=== PATIENT | female | born 2000 | race Caucasian/White ===

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

== ENCOUNTER 2022-03-18 17:35 | Emergency (ER) | payer OTHER ==
--- OUTSIDE RECORDS SUMMARY | 2022-03-18 17:39 | XMS REPORT | Continuity of Care Document ---
:2000 Author Organization [facility] t Address [address] [place] [address] Dr. Parr [address] [place] [id number] Care Team Providers Name Role Phone Rhea Huitron Primary Care Physician [phone] Problems Condition Condition Condition Status Onset Resolution Last Treating Co mments Source Name Details Category Date Date Treatment Clinician Date BCP ( BCP ( Diagnosis Active Common control control Spirit pills) pills) - [facility] initiation initiation [facility] Abnormal Abnormal Diagnosis Active Com mon menses menses Spirit - [facility] Vitamin D Vitamin D Problem Active Com mon deficiency deficiency Sp bhumika - [facility] Disturbanc Disturbanc Problem Active C ommon e in sleep e in sleep Sp bhumika behavior behavior - [facility] Other iron Other iron Problem Active C ommon deficiency deficiency Sp bhumika anemia anemia - [facility] Encounter Encounter Problem Active Com mon for for Spirit counseling counseling - [facility] Initiation Initiation Problem Active C ommon of Depo of Depo Spirit Provera Provera - [facility] Depression Depression Diagnosis Active Common with with Spirit anxiety anxiety - [facility] Obesity Obesity Diagnosis Active Commo n (BMI (BMI Spirit 30-39.9) 30-39.9) - [facility] Menstrual Menstrual Problem Active Com mon spotting spotting [facility] Surveillan Surveillan Problem Active C ommon ce for ce for Spirit Depo-Prove Depo-Prove - [facility] ra ra St contracept [facility] Dietary Dietary Diagnosis Active Commo n surveillan surveillan Sp bhumika ce and ce and - [facility] counseling counseling [facility] Allergies, Adverse Reactions, Alerts This patient has no known allergies or adverse reactions. Medications Ordered Filled Start Stop Current Ordering Indication Dosage Frequency Signature Comments Components Source Medication Medication Date Date Medication? Clinician (SIG) Name Name TAKE 1 No 25 TABLET BY 8-18 MOUTH TWICE 00:00: A DAY 00 NEEDED NEEDED FOR ANXIETY AND SLEEP QUETIAPINE No 25 TAB 25MG 8-18 00:00: 00 fluoxetine 2020-05 No 1mg 20 mg 2-01 tablet 00:00: 00 propranolol 2020-05 No 1mg 10 mg 2-01 tablet 00:00: 00 cholecalcif 2020-05 No 1(50,00 loreto 1-03 0 unit) (vitamin 00:00: D3) 1,250 00 mcg (50,000 unit) tablet paroxetine 2020-05 No 1mg 20 mg 1-02 tablet 00:00: 00 propranolol 2020-05 No 1mg 10 mg -02 tablet 00:00: 00 cholecalcif No 1(50,00 loreto 4-28 0 unit) (vitamin 00:00: D3) 1,250 00 mcg (50,000 unit) tablet cholecalcif No 1(50,00 loreto 4-19 0 unit) (vitamin 00:00: D3) 1,250 00 mcg (50,000 unit) tablet paroxetine No 1mg 20 mg 4-16 tablet 00:00: 00 meclizine No 1mg 12.5 mg 4-16 tablet 00:00: 00 Lessina Lessina 2018-1 Yes Mickie 1 tablet Co mmon 2-16 Millender Spirit 00:00: - [facility] Paxil Paxil 2018-0 Yes Mickie 1 tablet Common 4-10 Millender in the Spirit 00:00: morning - [facility] Flonase Flonase 2018-0 Yes Mickie 2 sprays Co mmon 3-28 Millender in each Spirit 00:00: nostril - [facility] Depo-Shaker Screen Operator Depo-Shaker Screen Operator 2019- No Mickie 1 ml Common a a 12-16 Millender [facility] 00:00 - [facility] :00 [facility] Vital Signs Vital Name Observation Time Observation Value Comments Source BP Systolic 2021-04-25 09:45:00 121 mm[Hg] BP Diastolic 2021-04-25 09:45:00 76 mm[Hg] Weight Measured 2021-04-25 09:45:00 214.60 pounds Height Measured 2021-04-25 09:45:00 63.50 inches Body Temperature 2021-04-25 09:45:00 97.60 degrees Heart Rate 2021-04-25 09:45:00 78.00 /min Respiratory Rate 2021-04-25 09:45:00 BP Systolic 2021-03-27 15:29:00 107 mm[Hg] BP Diastolic 2021-03-27 15:29:00 71 mm[Hg] Weight Measured 2021-03-27 15:29:00 211.80 pounds Height Measured 2021-03-27 15:29:00 63.50 inches Body Temperature 2021-03-27 15:29:00 97.60 degrees Heart Rate 2021-03-27 15:29:00 65.00 /min Respiratory Rate 2021-03-27 15:29:00 BP Systolic 2020-09-08 09:25:00 105 mm[Hg] BP Diastolic 2020-09-08 09:25:00 67 mm[Hg] Weight Measured 2020-09-08 09:25:00 229.00 pounds Height Measured 2020-09-08 09:25:00 63.50 inches Body Temperature 2020-09-08 09:25:00 97.50 degrees Heart Rate 2020-09-08 09:25:00 87.00 /min Respiratory Rate 2020-09-08 09:25:00 Procedures This patient has no known procedures. Plan of Care Planned Activity Planned Date Details Comments Source Goal Plan of Care Note [code = 95781-7] Goal Plan of Care Note [code = 99643-8] Goal Plan of Care Note [code = 52534-5] Goal Plan of Care Note [code = 11818-9] Goal Plan of Care Note [code = 66198-4] Goal Plan of Care Note [code = 27277-0] Goal Plan of Care Note [code = 92022-0] Goal Plan of Care Note [code = 66510-9] Goal Plan of Care Note [code = 16620-9] Goal Plan of Care Note [code = 08885-4] Goal Plan of Care Note [code = 46661-5] Goal Plan of Care Note [code = 67704-9] Goal Plan of Care Note [code = 59484-8] Goal Plan of Care Note [code = 89922-0] Encounters Start End Encounter Admission Attending Care Care Encounter Source Date/Time Date/Time Type Type Clinicians Facility Department ID 2022-03-18 2022-03-18 Outpatient [facility] [id number] Mike 11:12:59 11:12:59 1024 F Iftikhar 2022-01-10 2022-01-10 Outpatient [id number] 00:00:00 00:00:00 Visit [id number] 2019-05-10 2019-05-10 [id number] Common 10:45:00 10:45:[address] [facility] [address] [facility] 2019-02-11 2019-02-11 [facility] [id number] Common 20:04:00 20:04:[address] [facility] [address] [facility] 2019-02-04 2019-02-04 [facility] [id number] Common 08:20:00 08:20:[address] [facility] [address] [facility] 2019-02-01 2019-02-01 [facility] [id number] Common 20:05:00 20:05:[address] [facility] [address] [facility] 2019-02-01 2019-02-01 Out[facility] [id number] Common 11:40:00 11:40:[address] [facility] [address] [facility] 2018-11-18 2018-11-18 [facility] [id number] Common 09:00:00 09:00:[address] [facility] [address] [facility] 2018-11-04 2018-11-04 Out[facility] [id number] Common 11:00:00 11:00:[address] [facility] 2018-09-02 2018-09-02 [id number] Common 16:00:00 16:00:[address] [facility] 2017-11-07 2017-11-07 [facility] [id number] Common 08:30:00 08:30:[address] [facility] 2017-10-10 2017-10-10 [facility] [id number] Common 08:30:00 08:30:[address] [facility] [address] [facility] 2017-10-09 2017-10-09 [facility] [id number] Common 14:30:00 14:30:[address] [facility] 2017-08-20 2017-08-20 [facility] [id number] Common 13:39:00 13:39:[address] [facility] 2017-08-20 2017-08-20 [facility] [id number] Common 08:45:00 08:45:[address] [facility] Results Test Description Test Time Test Comments Results Result Comments Source VITAMIN D, 25 OH 2021-03-28 00:00:00 Test Item Value Reference Range Interpretation Comme nts VITAMIN D, 25 OH (test code = 4958) 34 NG/ML VITAMIN D, 25 [id number] 00:00:00 Test Item Value Reference Range Interpretation Comments VITAMIN D, 25 OH (test code = 4958) 34 NG/ML CARDIO IQ(R) VITAMIN D, 25-HYDROXY, LC/MS/[id number] 00:00:00 Test Item Value Reference Range Interpretation Comments VITAMIN D, 25-OH, TOTAL (test code 25 ng/mL = 55295-5) VITAMIN D, 25-OH, D3 (test code = 25 ng/mL 1989-05) VITAMIN D, 25-OH, D2 (test code = <4.0 ng/mL 2235-8) VITAMIN B12/FOLATE, SERUM [id number] 00:00:00 Test Item Value Reference Range Interpretation Comments VITAMIN B12 (test code = 2132-9) 381 pg/mL FOLATE, SERUM (test code = 2284-8) 9.7 ng/mL CBC (INCLUDES DIFF/PLT)2020-09-10 00:00:00 Test Item Value Reference Range Interpretation Comments WHITE BLOOD CELL COUNT (test 7.6 Thousand/uL code = 6690-2) RED BLOOD CELL COUNT (test 4.49 Million/uL code = 789-8) HEMOGLOBIN (test code = 13.9 g/dL 718-7) HEMATOCRIT (test code = 41.2 % 4544-3) MCV (test code = 787-2) 91.8 fL MCH (test code = 785-6) 31.0 pg MCHC (test code = 786-4) 33.7 g/dL RDW (test code = 788-0) 12.7 % PLATELET COUNT (test code = 373 Thousand/uL 777-3) MPV (test code = 776-5) 10.6 fL ABSOLUTE NEUTROPHILS (test 4826 cells/uL code = 751-8) ABSOLUTE BAND NEUTROPHILS DNR cells/uL (test code = 24057-2) ABSOLUTE METAMYELOCYTES (test DNR cells/uL code = 33878-7) ABSOLUTE MYELOCYTES (test DNR cells/uL code = 45072-9) ABSOLUTE PROMYELOCYTES (test DNR cells/uL code = 57872-9) ABSOLUTE LYMPHOCYTES (test 2181 cells/uL code = 731-0) ABSOLUTE MONOCYTES (test code 403 cells/uL = 742-7) ABSOLUTE EOSINOPHILS (test 137 cells/uL code = 711-2) ABSOLUTE BASOPHILS (test code 53 cells/uL = 704-7) ABSOLUTE BLASTS (test code = DNR cells/uL 94582-0) ABSOLUTE NUCLEATED RBC (test DNR cells/uL code = 54621-7) NEUTROPHILS (test code = 63.5 % 770-8) BAND NEUTROPHILS (test code = DNR % 764-1) METAMYELOCYTES (test code = DNR % 740-1) MYELOCYTES (test code = DNR % 749-2) PROMYELOCYTES (test code = DNR % 783-1) LYMPHOCYTES (test code = 28.7 % 736-9) REACTIVE LYMPHOCYTES (test DNR % code = 33546-3) MONOCYTES (test code = 5.3 % 5905-5) EOSINOPHILS (test code = 1.8 % 713-8) BASOPHILS (test code = 706-2) 0.7 % BLASTS (test code = 709-6) DNR % NUCLEATED RBC (test code = DNR /100WBC 00839-2) COMMENT(S) (test code = DNR 8251-1) COMPREHENSIVE METABOLIC [id number] 00:00:00 Test Item Value Reference Range Interpretation Comments GLUCOSE (test code = 93 mg/dL 2345-7) UREA NITROGEN (BUN) 14 mg/dL (test code = 3094-0) CREATININE (test code = 0.62 mg/dL 2160-0) eGFR NON-AFR. BERMUDIAN 132 mL/min/1.73m2 (test code = 67262-5) eGFR 153 mL/min/1.73m2 (test code = 64726-2) BUN/CREATININE RATIO NOT APPLICABLE (calc) (test code = 3097-3) SODIUM (test code = 139 mmol/L 2951-2) POTASSIUM (test code = 4.2 mmol/L 2823-3) CHLORIDE (test code = 108 mmol/L 2075-0) CARBON DIOXIDE (test 24 mmol/L code = 2027-9) CALCIUM (test code = 9.3 mg/dL 80946-6) PROTEIN, TOTAL (test 6.5 g/dL code = 2885-2) ALBUMIN (test code = 4.1 g/dL 1751-7) GLOBULIN (test code = 2.4 g/dL(calc) 90667-4) ALBUMIN/GLOBULIN RATIO 1.7 (calc) (test code = 1759-0) BILIRUBIN, TOTAL (test 0.3 mg/dL code = 1975-2) ALKALINE PHOSPHATASE 76 U/L (test code = 6768-6) AST (test code = 14 U/L 1920-8) ALT (test code = 16 U/L 1742-6) [id number] 00:00:00 Test Item Value Reference Range Interpretation Comments TSH (test code = 3016-3) 1.53 mIU/L SARS-CoV-2 (COVID-19) by RT-PCR (HIGH RISK)2019-12-15 00:00:00 Test Item Value Reference Range Interpretation Comments SARS-CoV-2 INTERPRETATION NEGATIVE (test code = 75944) SOURCE (test code = 26835) NASOPHARYNGEAL SARS-CoV-2 (COVID-19) by RT-PCR (HIGH RISK)2019-12-15 00:00:00 Test Item Value Reference Range Interpretation Comments SARS-CoV-2 INTERPRETATION NEGATIVE (test code = 91109) SOURCE (test code = 56828) NASOPHARYNGEAL
[2022-03-18 19:06] LABS: Urine Blood Trace-intact (Negative); Urine Glucose Negative (Negative); Urine Protein Negative (Negative); Urine Specific Gravity >=1.030 (1.005-1.030)
--- NOTE | 2022-03-18 19:22 | RAD REPORT ---
EXAM DESCRIPTION: RAD - Shoulder Right 2 View - 03/18/2022 7:17 pm CLINICAL HISTORY: Right shoulder pain FINDINGS: No fracture or dislocation is seen.
--- NOTE | 2022-03-18 19:22 | RAD REPORT ---
EXAM DESCRIPTION: RAD - Elbow Left 3 View - 03/18/2022 7:17 pm CLINICAL HISTORY: Left elbow pain status post trauma FINDINGS: No fracture or dislocation is seen.
--- NOTE | 2022-03-18 19:23 | RAD REPORT ---
EXAM DESCRIPTION: RAD - Hip Left 2 View - 03/18/2022 7:17 pm CLINICAL HISTORY: Left hip pain status post injury FINDINGS: No fracture or dislocation is seen.
--- NOTE | 2022-03-18 19:52 | RAD REPORT ---
EXAM DESCRIPTION: CT - Head C Spine Mpr Wo Con - 03/18/2022 7:37 pm CLINICAL HISTORY: Head and neck injury status post fall. Head and neck pain COMPARISON: None. TECHNIQUE: Computed axial tomography of the head and cervical spine was obtained. Sagittal and coronal reconstruction was performed. All CT scans are performed using dose optimization technique as appropriate and may include automated exposure control or mA/KV adjustment according to patient size. FINDINGS: An intracranial bleed is not seen. The ventricles are normal in caliber. An extra-axial fluid collection is not noted.Fluid within the visualized sinuses and mastoids is not seen A cervical fracture is not visualized. No dislocation is noted. IMPRESSION: No acute intracranial abnormality is seen. A cervical fracture is not visualized. If the patient continues to have symptoms to suggest intracra nial /spinal cord pathology then MRI would be recommended
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
[2022-03-18 21:41] VITALS: TEMP 99.1
[2022-03-18 21:46] VITALS: O2SAT 100
[2022-03-18 21:50] VITALS: BP 110/68
== END 2022-03-18 20:47 | disposition home or self-care (01) ==
LOC: ER 17:35
DX: M54.2 Cervicalgia (principal); M25.522 Pain in left elbow; M25.552 Pain in left hip; M25.511 Pain in right shoulder; V49.40XA Driver injured in collision with unspecified motor vehicles in traffic accident, initial encounter
CPT/HCPCS: 70450; 72125; 81003; 99283